=== PATIENT | female | born 1975 | race Caucasian/White ===

== ENCOUNTER → 2018-04-25 | Outpatient (CLI) | payer OTHER ==
[2018-04-25 07:55] LABS: ABSOLUTE BASOPHILS 0.1 thou/uL (0.0-0.2); ABSOLUTE EOSINOPHILS 0.3 thou/uL (0.0-0.7); ABSOLUTE LYMPHOCYTES 3.5 thou/uL (0.8-5.3); ABSOLUTE MONOCYTES 0.5 thou/uL (0.0-1.2); ABSOLUTE NEUTROPHILS 5.8 thou/uL (1.6-8.1); BASOPHILS 0.8 %; EOSINOPHILS 2.6 %; HEMOGLOBIN 13.1 gm/dL (12.0-15.0); LYMPHOCYTES 34.8 %; MCH 29.9 pg (26.0-34.0); MCHC 32.8 g/dL (28.0-37.0); MCV 91.1 fL (80.0-100.0); MONOCYTES 4.7 %; NUCLEATED RBCS 0 /100WBC; PLATELET COUNT* 375 thou/uL (150-400); POLYS 57.1 %; RBC 4.39 mil/uL (4.20-5.00); WBC 10.2 thou/uL (4.0-11.0)
[2018-04-25 08:12] LABS: ALBUMIN 3.2 g/dL (3.4-5.0); ALKALINE PHOSPHATASE 90 U/L (46-116); ANION GAP 7 mmol/L (7-16); BUN 11 mg/dL (7-18); CALCIUM 9.1 mg/dL (8.5-10.1); CHLORIDE 102 mmol/L (98-107); CHOLESTEROL 127 mg/dL (<200); CO2 29 mmol/L (21-32); CREATININE 0.8 mg/dL (0.6-1.3); GLUCOSE 137 mg/dL (70-99); HDL CHOLESTEROL 44 mg/dL (>40); LDL CHOLESTEROL 58 mg/dL (<100); POTASSIUM 4.5 mmol/L (3.5-5.1); SGOT 21 U/L (15-37); SGPT 42 U/L (30-65); SODIUM 138 mmol/L (136-145); TC:HDL 2.9 Ratio (Not establshd); TOTAL BILIRUBIN 0.2 mg/dL (<0.1-1.0); TOTAL PROTEIN 7.8 g/dL (6.4-8.2); TRIGLYCERIDE 129 mg/dL (<150); VLDL 26 mg/dL (<40)
[2018-04-25 08:14] LABS: SERUM ASSESSMENT Clear
== END ==
LOC: M.LAB 07:37
PROVIDERS: Family Medicine
DX: E11.9 Type 2 diabetes mellitus without complications (principal); E78.2 Mixed hyperlipidemia; F41.9 Anxiety disorder, unspecified; F51.02 Adjustment insomnia; Z79.4 Long term (current) use of insulin

== ENCOUNTER → 2018-08-14 | Outpatient (CLI) | payer OTHER ==
[2018-08-14 09:42] LABS: CALCIUM 9.2 mg/dL (8.5-10.1); CREATININE 0.7 mg/dL (0.6-1.3); POTASSIUM 4.3 mmol/L (3.5-5.1)
[2018-08-14 21:07] LABS: GLYCOHEMOGLOBIN (HGB A1C) 7.3 % (4.8-5.6)
== END ==
LOC: M.LAB 09:07
PROVIDERS: Registered Nurse
DX: I10 Essential (primary) hypertension (principal); E11.65 Type 2 diabetes mellitus with hyperglycemia; Z79.4 Long term (current) use of insulin

== ENCOUNTER → 2018-08-22 | Outpatient (CLI) | payer OTHER | LOC: M.LAB 16:01 | DX: E55.9 Vitamin D deficiency, unspecified (principal) ==

== ENCOUNTER → 2018-11-07 | Outpatient (CLI) | payer OTHER ==
[2018-11-10 15:08] LABS: ANA INTERPRETATION Negative (Negative)
== END ==
LOC: M.LAB 13:05
PROVIDERS: Registered Nurse
DX: M25.50 Pain in unspecified joint (principal); R21 Rash and other nonspecific skin eruption

== ENCOUNTER → 2018-12-11 | Outpatient (CLI) | payer OTHER ==
[2018-12-11 07:09] LABS: ABSOLUTE EOSINOPHILS 0.2 thou/uL (0.0-0.7); ABSOLUTE LYMPHOCYTES 3.3 thou/uL (0.8-5.3); ABSOLUTE MONOCYTES 0.5 thou/uL (0.0-1.2); ABSOLUTE NEUTROPHILS 5.8 thou/uL (1.6-8.1); BASOPHILS 0.2 %; EOSINOPHILS 2.5 %; HEMATOCRIT 38.4 % (37.0-47.0); HEMOGLOBIN 12.8 gm/dL (12.0-15.0); LYMPHOCYTES 33.1 %; MCH 29.8 pg (26.0-34.0); MCHC 33.3 g/dL (28.0-37.0); MCV 89.3 fL (80.0-100.0); MONOCYTES 5.5 %; NUCLEATED RBCS 0 /100WBC; PLATELET COUNT* 362 thou/uL (150-400); POLYS 58.7 %; RBC 4.29 mil/uL (4.20-5.00); RDW-CV 14.3 % (10.5-14.5); WBC 9.8 thou/uL (4.0-11.0)
[2018-12-11 07:18] LABS: ALKALINE PHOSPHATASE 87 U/L (46-116); ANION GAP 6 mmol/L (7-16); BUN 13 mg/dL (7-18); CALCIUM 8.4 mg/dL (8.5-10.1); CHLORIDE 103 mmol/L (98-107); CHOLESTEROL 138 mg/dL (<200); CO2 29 mmol/L (21-32); CREATININE 0.8 mg/dL (0.6-1.3); GLUCOSE 122 mg/dL (70-99); HDL CHOLESTEROL 48 mg/dL (>40); LDL CHOLESTEROL 64 mg/dL (<100); POTASSIUM 4.4 mmol/L (3.5-5.1); SGOT 16 U/L (15-37); SGPT 25 U/L (30-65); SODIUM 138 mmol/L (136-145); TC:HDL 2.9 Ratio (Not establshd); TOTAL BILIRUBIN 0.3 mg/dL (<0.1-1.0); TOTAL PROTEIN 7.6 g/dL (6.4-8.2); TRIGLYCERIDE 131 mg/dL (<150); VLDL 26 mg/dL (<40)
[2018-12-11 07:20] LABS: SERUM ASSESSMENT Clear
[2018-12-11 23:07] LABS: GLYCOHEMOGLOBIN (HGB A1C) 7.5 % (4.8-5.6)
== END ==
LOC: M.LAB 06:49
PROVIDERS: Registered Nurse
DX: E11.65 Type 2 diabetes mellitus with hyperglycemia (principal); I10 Essential (primary) hypertension; E78.5 Hyperlipidemia, unspecified; E55.9 Vitamin D deficiency, unspecified; Z79.4 Long term (current) use of insulin

== ENCOUNTER → 2019-07-06 | Outpatient (CLI) | payer OTHER ==
[2019-07-06 07:40] LABS: ABSOLUTE EOSINOPHILS 0.3 thou/uL (0.0-0.7); ABSOLUTE LYMPHOCYTES 4.3 thou/uL (0.8-5.3); ABSOLUTE MONOCYTES 0.6 thou/uL (0.0-1.2); ABSOLUTE NEUTROPHILS 5.6 thou/uL (1.6-8.1); BASOPHILS 0.4 %; EOSINOPHILS 2.4 %; HEMATOCRIT 39.2 % (37.0-47.0); HEMOGLOBIN 13.1 gm/dL (12.0-15.0); LYMPHOCYTES 39.6 %; MCH 30.4 pg (26.0-34.0); MCHC 33.5 g/dL (28.0-37.0); MCV 90.8 fL (80.0-100.0); MONOCYTES 5.7 %; MPV 7.6 fl. (7.2-11.1); NUCLEATED RBCS 0 /100WBC; PLATELET COUNT* 332 thou/uL (150-400); POLYS 51.9 %; RBC 4.32 mil/uL (4.20-5.00); RDW-CV 14.7 % (10.5-14.5); WBC 10.9 thou/uL (4.0-11.0)
[2019-07-06 07:52] LABS: ALBUMIN 3.2 g/dL (3.4-5.0); ALKALINE PHOSPHATASE 91 U/L (46-116); ANION GAP 12 mmol/L (7-16); BUN 10 mg/dL (7-18); CALCIUM 8.9 mg/dL (8.5-10.1); CHLORIDE 103 mmol/L (98-107); CHOLESTEROL 134 mg/dL (<200); CO2 25 mmol/L (21-32); CREATININE 0.7 mg/dL (0.6-1.3); GLUCOSE 158 mg/dL (70-99); HDL CHOLESTEROL 44 mg/dL (>40); LDL CHOLESTEROL 65 mg/dL (<100); SGOT 20 U/L (15-37); SGPT 31 U/L (30-65); SODIUM 140 mmol/L (136-145); TOTAL BILIRUBIN 0.2 mg/dL (<0.1-1.0); TOTAL PROTEIN 7.7 g/dL (6.4-8.2); TRIGLYCERIDE 127 mg/dL (<150); VLDL 25 mg/dL (<40)
[2019-07-06 07:55] LABS: SERUM ASSESSMENT Clear
== END ==
LOC: M.LAB 07:25
PROVIDERS: Registered Nurse
DX: E55.9 Vitamin D deficiency, unspecified (principal); E11.3313 Type 2 diabetes mellitus with moderate nonproliferative diabetic retinopathy with macular edema, bilateral; Z79.4 Long term (current) use of insulin; Z79.899 Other long term (current) drug therapy

== ENCOUNTER → 2019-10-29 | Outpatient (CLI) | payer OTHER | LOC: M.ULTRA 15:00 | DX: T83.32XA Displacement of intrauterine contraceptive device, initial encounter (principal); N88.8 Other specified noninflammatory disorders of cervix uteri; Y83.8 Other surgical procedures as the cause of abnormal reaction of the patient, or of later complication, without mention of misadventure at the time of the procedure; Y92.89 Other specified places as the place of occurrence of the external cause ==

== ENCOUNTER → 2020-01-21 | Outpatient (CLI) | payer OTHER ==
[2020-01-21 12:15] LABS: ABSOLUTE BASOPHILS 0.1 thou/uL (0.0-0.2); ABSOLUTE EOSINOPHILS 0.3 thou/uL (0.0-0.7); ABSOLUTE LYMPHOCYTES 4.4 thou/uL (0.8-5.3); ABSOLUTE MONOCYTES 0.5 thou/uL (0.0-1.2); ABSOLUTE NEUTROPHILS 6.3 thou/uL (1.6-8.1); EOSINOPHILS 2.2 %; HEMATOCRIT 39.3 % (37.0-47.0); HEMOGLOBIN 12.7 gm/dL (12.0-15.0); LYMPHOCYTES 37.9 %; MCH 29.2 pg (26.0-34.0); MCHC 32.3 g/dL (28.0-37.0); MCV 90.3 fL (80.0-100.0); MONOCYTES 4.7 %; MPV 7.7 fl. (7.2-11.1); NUCLEATED RBCS 0 /100WBC; PLATELET COUNT* 344 thou/uL (150-400); POLYS 54.2 %; RBC 4.35 mil/uL (4.20-5.00); RDW-CV 15.3 % (10.5-14.5); WBC 11.7 thou/uL (4.0-11.0)
[2020-01-21 12:25] LABS: ALBUMIN 3.2 g/dL (3.4-5.0); ALKALINE PHOSPHATASE 87 U/L (46-116); ANION GAP 6 mmol/L (7-16); BUN 9 mg/dL (7-18); CALCIUM 8.4 mg/dL (8.5-10.1); CHLORIDE 100 mmol/L (98-107); CHOLESTEROL 169 mg/dL (<200); CO2 32 mmol/L (21-32); CREATININE 0.8 mg/dL (0.6-1.3); GLUCOSE 154 mg/dL (70-99); HDL CHOLESTEROL 49 mg/dL (>40); LDL CHOLESTEROL 91 mg/dL (<100); POTASSIUM 4.3 mmol/L (3.5-5.1); SERUM ASSESSMENT Clear; SGOT 23 U/L (15-37); SGPT 37 U/L (30-65); SODIUM 138 mmol/L (136-145); TC:HDL 3.4 Ratio (Not establshd); TOTAL BILIRUBIN 0.2 mg/dL (<0.1-1.0); TOTAL PROTEIN 7.6 g/dL (6.4-8.2); TRIGLYCERIDE 147 mg/dL (<150); VLDL 29 mg/dL (<40)
[2020-01-22 02:07] LABS: GLYCOHEMOGLOBIN (HGB A1C) 11.3 % (4.8-5.6)
== END ==
LOC: M.LAB 11:37
PROVIDERS: Nurse Practitioner
DX: E78.2 Mixed hyperlipidemia (principal); E66.9 Obesity, unspecified; E11.3313 Type 2 diabetes mellitus with moderate nonproliferative diabetic retinopathy with macular edema, bilateral; Z79.4 Long term (current) use of insulin

== ENCOUNTER → 2020-03-11 | Outpatient (CLI) | payer OTHER ==
[2020-03-11 11:56] LABS: ABSOLUTE BASOPHILS 0.1 thou/uL (0.0-0.2); ABSOLUTE EOSINOPHILS 0.3 thou/uL (0.0-0.7); ABSOLUTE LYMPHOCYTES 3.5 thou/uL (0.8-5.3); ABSOLUTE MONOCYTES 0.5 thou/uL (0.0-1.2); ABSOLUTE NEUTROPHILS 5.1 thou/uL (1.6-8.1); HEMATOCRIT 37.6 % (37.0-47.0); HEMOGLOBIN 12.6 gm/dL (12.0-15.0); LYMPHOCYTES 36.9 %; MCH 30.4 pg (26.0-34.0); MCHC 33.5 g/dL (28.0-37.0); MCV 90.9 fL (80.0-100.0); NUCLEATED RBCS 0 /100WBC; PLATELET COUNT* 337 thou/uL (150-400); POLYS 54.1 %; RBC 4.14 mil/uL (4.20-5.00); RDW-CV 15.3 % (10.5-14.5); WBC 9.4 thou/uL (4.0-11.0)
[2020-03-11 12:14] LABS: ALBUMIN 3.1 g/dL (3.4-5.0); CREATININE 0.8 mg/dL (0.6-1.3); POTASSIUM 4.4 mmol/L (3.5-5.1); TOTAL BILIRUBIN 0.2 mg/dL (<0.1-1.0); TOTAL PROTEIN 7.6 g/dL (6.4-8.2)
== END ==
LOC: M.LAB 11:25
PROVIDERS: Nurse Practitioner
DX: R06.09 Other forms of dyspnea (principal); M79.89 Other specified soft tissue disorders; E11.9 Type 2 diabetes mellitus without complications; I10 Essential (primary) hypertension; E66.01 Morbid (severe) obesity due to excess calories; E78.2 Mixed hyperlipidemia; Z79.4 Long term (current) use of insulin

== ENCOUNTER → 2020-03-17 | Outpatient (CLI) | payer OTHER ==
[2020-03-17 15:55] LABS: ALBUMIN 3.3 g/dL (3.4-5.0); CALCIUM 8.9 mg/dL (8.5-10.1); CREATININE 0.9 mg/dL (0.6-1.3); POTASSIUM 4.2 mmol/L (3.5-5.1); TOTAL BILIRUBIN 0.1 mg/dL (<0.1-1.0)
== END ==
LOC: M.ULTRA 15:00
PROVIDERS: ATTEND Nurse Practitioner
DX: M79.89 Other specified soft tissue disorders (principal)

== ENCOUNTER 2020-05-23 10:07 | Emergency (ER) | payer OTHER ==
[~2020-05-23] VITALS: Ht 162.6 cm; Wt 158.8 kg
[2020-05-23] MEDS ORDERED: TRESIBA100 UNIT/1 (10:26)
[2020-05-23] MEDS ORDERED: HUMALOG100 UNIT/1 SUBQ (10:27)
[2020-05-23] MEDS ORDERED: REMERON15 M1 PO (10:27)
[2020-05-23 11:00] LABS: ABSOLUTE BASOPHILS 0.1 thou/uL (0.0-0.2); ABSOLUTE EOSINOPHILS 0.3 thou/uL (0.0-0.7); ABSOLUTE LYMPHOCYTES 3.8 thou/uL (0.8-5.3); ABSOLUTE MONOCYTES 0.4 thou/uL (0.0-1.2); ABSOLUTE NEUTROPHILS 5.5 thou/uL (1.6-8.1); EOSINOPHILS 2.7 %; HEMATOCRIT 37.3 % (37.0-47.0); HEMOGLOBIN 12.4 gm/dL (12.0-15.0); LYMPHOCYTES 37.7 %; MCHC 33.2 g/dL (28.0-37.0); MCV 90.4 fL (80.0-100.0); MONOCYTES 4.2 %; MPV 8.5 fl. (7.2-11.1); NUCLEATED RBCS 0 /100WBC; PLATELET COUNT* 309 thou/uL (150-400); POLYS 54.4 %; RBC 4.13 mil/uL (4.20-5.00); RDW-CV 14.3 % (10.5-14.5); WBC 10.1 thou/uL (4.0-11.0)
[2020-05-23 11:16] LABS: APTT 25.7 Seconds (25.0-31.3); INR 0.9; PROTIME 9.6 Seconds (9.20-11.50)
[2020-05-23 11:22] LABS: CALCIUM 8.5 mg/dL (8.5-10.1); CREATININE 0.8 mg/dL (0.6-1.3); POTASSIUM 4.1 mmol/L (3.5-5.1)
[2020-05-23 11:27] LABS: TOTAL BILIRUBIN 0.2 mg/dL (<0.1-1.0)
[2020-05-23] MEDS ORDERED: MEDROLDOSEPACK PO ×3 (11:57→12:02)
[2020-05-23] MEDS ORDERED: ASA81BEC PO ×3 (11:58→12:02)
[2020-05-23] MEDS ORDERED: NORCO 5-325 TA1 EAC2 PO (12:01)
[2020-05-23 12:20] VITALS: BP 131/72
--- NOTE | 2020-05-24 17:33 | EKG ---
[place] [address] ELECTROCARDIOGRAM REPORT Name: ENIOANGELIC Aicha Room: [facility]#: [id number] Admission: 05/23/20 Attend Phys: Discharge: 05/23/20 Date of : 75 Date of Service: 05/23/20 1027 Report #: [id number] THIS REPORT FOR: //name// [facility] ED Test Date: 2020-05-23 Test Time: 10:27:56 Pat Name: ANGELIC STEEN Department: Room: Gender: F [employer] Engineer: CCD : 1975 Requested By: Walter Black Order Number: [id number] MD: Goran Coffman Measurements Intervals [place] Rate: 102 P: 53 [place]: 166 QRS: 20 QRSD: 92 T: 43 QT: 377 QTc: 492 Interpretive Statements Sinus tachycardia Low voltage, precordial leads ST elev, probable normal early repol pattern Borderline prolonged QT interval Baseline wander in lead(s) I,aVL,V6 No previous ECG available for comparison Electronically Signed On 05-24-2020 17:32:48 CDT by Goran Coffman [email or web address] <ELECTRONICALLY SIGNED> By: Goran Coffman MD, [facility] 05/24/20 1732 1027 1027 Goran Coffman MD, [facility] /EPI
== END 2020-05-23 12:54 | disposition home or self-care (01) ==
LOC: M.ERS 10:07
PROVIDERS: Physician Assistant
DX: R09.1 Pleurisy (principal); E11.9 Type 2 diabetes mellitus without complications; Z98.890 Other specified postprocedural states; Z88.6 Allergy status to analgesic agent; Z79.4 Long term (current) use of insulin

== ENCOUNTER 2020-05-25 16:20 | Emergency (ER) | payer OTHER ==
[~2020-05-25] VITALS: Ht 162.6 cm; Wt 155.1 kg
[~2020-05-25 16:20] MED LIST: ASA81BEC PO; HUMALOG100 UNIT/1 SUBQ; MEDROLDOSEPACK PO; NORCO 5-325 TA1 EAC2 PO; REMERON15 M1 PO; TRESIBA100 UNIT/1
[2020-05-25 16:56] LABS: ABSOLUTE LYMPHOCYTES 3.8 thou/uL (0.8-5.3); ABSOLUTE MONOCYTES 0.7 thou/uL (0.0-1.2); ABSOLUTE NEUTROPHILS 10.4 thou/uL (1.6-8.1); BASOPHILS 0.2 %; EOSINOPHILS 0.2 %; HEMATOCRIT 40.4 % (37.0-47.0); HEMOGLOBIN 13.4 gm/dL (12.0-15.0); LYMPHOCYTES 25.7 %; MCHC 33.2 g/dL (28.0-37.0); MCV 90.6 fL (80.0-100.0); MONOCYTES 4.5 %; MPV 8.6 fl. (7.2-11.1); NUCLEATED RBCS 0 /100WBC; POLYS 69.4 %; RBC 4.46 mil/uL (4.20-5.00); RDW-CV 14.7 % (10.5-14.5); WBC 14.9 thou/uL (4.0-11.0)
[2020-05-25 16:59] LABS: PLATELET COUNT* 390 thou/uL (150-400)
[2020-05-25 17:05] LABS: CALCIUM 9.2 mg/dL (8.5-10.1); POTASSIUM 3.9 mmol/L (3.5-5.1)
[2020-05-25 17:16] LABS: ALBUMIN 3.6 g/dL (3.4-5.0); TOTAL BILIRUBIN 0.1 mg/dL (<0.1-1.0); TOTAL PROTEIN 8.2 g/dL (6.4-8.2)
[2020-05-25] MEDS ORDERED: NORCO 5-325 TA1 EAC2 PO (18:51)
[2020-05-25] MEDS ORDERED: FLEXERIL PO (18:51)
[2020-05-25] MEDS ORDERED: PERCOCET 5-3251 EACH PO (18:55)
[2020-05-25 19:08] VITALS: BP 152/88
--- NOTE | 2020-05-26 12:15 | EKG ---
[place] [address] ELECTROCARDIOGRAM REPORT Name: ANGELIC STEEN Room: [facility]#: [id number] Admission: 05/25/20 Attend Phys: Discharge: 05/25/20 Date of : 75 Date of Service: 05/25/20 1650 Report #: [id number] THIS REPORT FOR: //name// [facility] ED Test Date: 2020-05-25 Test Time: 16:50:08 Pat Name: ANGELIC STEEN Department: Room: Gender: F Mid Teacher: : 1975 Requested By: Walter Black Order Number: [id number] MD: Jonathan Nixon Measurements Intervals [place] Rate: 86 P: 50 PA: 183 QRS: 13 QRSD: 102 T: 31 QT: 387 QTc: 463 Interpretive Statements Sinus rhythm Probable left atrial enlargement Compared to ECG 05/23/2020 10:27:56 Sinus tachycardia no longer present ST (T wave) deviation no longer present Electronically Signed On 05-26-2020 12:15:13 CDT by Jonathan Nixon [email or web address] <ELECTRONICALLY SIGNED> By: Jonathan Nixon MD, FACC 05/26/20 1215 1650 1650 Jonathan Nixon MD, [facility] /EPI
== END 2020-05-25 19:10 | disposition home or self-care (01) ==
LOC: M.ERS 16:20
PROVIDERS: Physician Assistant
DX: E11.65 Type 2 diabetes mellitus with hyperglycemia (principal); R07.81 Pleurodynia; R20.0 Anesthesia of skin; E11.9 Type 2 diabetes mellitus without complications; F41.9 Anxiety disorder, unspecified; Z20.828 Contact with and (suspected) exposure to other viral communicable diseases; Z79.4 Long term (current) use of insulin; Z98.890 Other specified postprocedural states; Z90.49 Acquired absence of other specified parts of digestive tract; Z88.6 Allergy status to analgesic agent

== ENCOUNTER → 2020-05-27 | Outpatient (CLI) | payer OTHER ==
[~2020-05-27] MED LIST changes: +FLEXERIL PO; +PERCOCET 5-3251 EACH PO
[2020-05-27 10:47] LABS: ABSOLUTE BASOPHILS 0.1 thou/uL (0.0-0.2); ABSOLUTE EOSINOPHILS 0.1 thou/uL (0.0-0.7); ABSOLUTE LYMPHOCYTES 2.9 thou/uL (0.8-5.3); ABSOLUTE MONOCYTES 0.7 thou/uL (0.0-1.2); BASOPHILS 0.6 %; EOSINOPHILS 0.6 %; HEMATOCRIT 38.8 % (37.0-47.0); HEMOGLOBIN 12.8 gm/dL (12.0-15.0); LYMPHOCYTES 24.7 %; MCH 30.2 pg (26.0-34.0); MCHC 33.1 g/dL (28.0-37.0); MCV 91.4 fL (80.0-100.0); MONOCYTES 5.7 %; MPV 8.5 fl. (7.2-11.1); NUCLEATED RBCS 0 /100WBC; PLATELET COUNT* 329 thou/uL (150-400); POLYS 68.4 %; RBC 4.25 mil/uL (4.20-5.00); RDW-CV 14.9 % (10.5-14.5); WBC 11.7 thou/uL (4.0-11.0)
[2020-05-27 10:56] LABS: ALBUMIN 3.2 g/dL (3.4-5.0); CALCIUM 8.7 mg/dL (8.5-10.1); CREATININE 0.9 mg/dL (0.6-1.3); POTASSIUM 4.2 mmol/L (3.5-5.1); TOTAL BILIRUBIN 0.1 mg/dL (<0.1-1.0); TOTAL PROTEIN 7.4 g/dL (6.4-8.2)
[2020-05-27 11:57] LABS: ESR (SEDRATE) 35 mm/hr (0-20)
== END ==
LOC: M.LAB 10:04
PROVIDERS: ATTEND Nurse Practitioner
DX: R06.02 Shortness of breath (principal); Z20.828 Contact with and (suspected) exposure to other viral communicable diseases

== ENCOUNTER → 2020-05-31 | Outpatient (CLI) | payer OTHER | LOC: M.CT 16:30 | PROVIDERS: ATTEND Family Medicine | DX: M79.89 Other specified soft tissue disorders (principal); R06.09 Other forms of dyspnea; D72.829 Elevated white blood cell count, unspecified; E66.01 Morbid (severe) obesity due to excess calories; R11.0 Nausea; Z68.43 Body mass index [BMI] 50.0-59.9, adult ==

== ENCOUNTER → 2020-06-01 | Outpatient (CLI) | payer OTHER | LOC: M.RAD 09:13 | PROVIDERS: ATTEND Family Medicine | DX: R10.13 Epigastric pain (principal) ==

== ENCOUNTER → 2020-06-03 | Outpatient (CLI) | payer OTHER ==
[2020-06-03 15:29] LABS: ALBUMIN 3.2 g/dL (3.4-5.0); CALCIUM 8.8 mg/dL (8.5-10.1); CREATININE 0.9 mg/dL (0.6-1.3); TOTAL BILIRUBIN 0.2 mg/dL (<0.1-1.0); TOTAL PROTEIN 7.6 g/dL (6.4-8.2)
== END ==
LOC: M.LAB 15:05
PROVIDERS: ATTEND Family Medicine
DX: E87.1 Hypo-osmolality and hyponatremia (principal)

== ENCOUNTER → 2020-06-09 | Outpatient (CLI) | payer OTHER ==
[~2020-06-09] MED LIST changes: +ADVIL200 M1 PO; +ALPRAZOLAM 0.50.5 M1 PO; +COZAAR 50 MG TA50 M1 PO; +GLUCOPHAGE XR750 MG PO; +LIPITOR 20 MG T20 M1 PO; +MELATONIN5 MG SUBLING; +NEXIUM40 MG PO; +SERTRALINE HCL50 MG PO; -TRESIBA100 UNIT/1; +TRESIBA100 UNIT/1 SUBQ; +ZANAFLEX4 MG PO
== END ==
LOC: M.LAB 07:22
PROVIDERS: ATTEND Internal Medicine Gastroenterology
DX: Z01.812 Encounter for preprocedural laboratory examination (principal); Z20.828 Contact with and (suspected) exposure to other viral communicable diseases; R10.13 Epigastric pain; R11.0 Nausea

== ENCOUNTER → 2020-06-14 | Day surgery (SDC) | payer OTHER ==
[2020-06-14 08:06] LABS: HEMOGLOBIN 13.9 gm/dL (12.0-15.0)
--- NOTE | 2020-06-16 14:07 | PATH ---
[facility] [address] [place] [address] PATHOLOGY RPT PROCEDURE Name: ANGELIC STEEN Room: [facility].#: [id number] Admission: 06/14/20 Date of : 75 Discharge: Report #: [id number] Path Case #: [id number] [facility] Accession Number: [id number] . 01 Material submitted: . stomach - ANTRAL BIOPSY FOR GASTRITIS . 01 Clinical history: . EPIGASTRIC PAIN, NAUSEA . 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 (REYMUNDO:pit 06/16/2020) . Special stain: H. pylori immuno QTP 06/16/2020 1058 Local . 02 Electronically signed: . Henrry Bradley MD, Pathologist NPI- [id number] . 01 Gross description: . The specimen is received in formalin, labeled "Contreras, Angelic, antral biopsy" and consists of 4 fragments of agustin tissue measuring between 0.2 x 0.2 cm and 0.5 x 0.2 cm which are entirely submitted in A1. (SDY; 06/15/2020) SYU/SYU 06/15/2020 1136 Local . 02 Pathologist provided ICD-10: K29.50 . 02 CPT . 202609, V20721 Specimen Comment: A courtesy copy of this report has been sent to [phone] Specimen Comment: [id number] Specimen Comment: Report sent to / DR LANDAVERDE Performed at: [address] [facility] [address], [place], [place] [id number] MD Shaka Mckeon MD Phone: [phone] Performed at: 02 [facility] [place] [address] [place], [place] [id number] MD Henrry Bradley MD Phone: [phone]
== END | disposition home or self-care (01) ==
LOC: M.SUR 05:40
PROVIDERS: ATTEND Internal Medicine Gastroenterology
DX: R10.13 Epigastric pain (principal); R11.0 Nausea; K29.50 Unspecified chronic gastritis without bleeding; K31.9 Disease of stomach and duodenum, unspecified; K44.9 Diaphragmatic hernia without obstruction or gangrene; K21.9 Gastro-esophageal reflux disease without esophagitis; I10 Essential (primary) hypertension; E11.9 Type 2 diabetes mellitus without complications; F32.9 Major depressive disorder, single episode, unspecified; E78.5 Hyperlipidemia, unspecified; Z98.890 Other specified postprocedural states; Z79.899 Other long term (current) drug therapy; Z90.49 Acquired absence of other specified parts of digestive tract

== ENCOUNTER → 2021-07-19 | Outpatient (CLI) | payer OTHER ==
[2021-07-19 07:41] LABS: HEMOGLOBIN 13.3 gm/dL (12.0-15.0); MPV 8.1 fl. (7.2-11.1); NUCLEATED RBCS 0 /100WBC; WBC 8.8 thou/uL (4.0-11.0)
[2021-07-19 07:42] LABS: ABSOLUTE BASOPHILS 0.1 thou/uL (0.0-0.2); ABSOLUTE EOSINOPHILS 0.2 thou/uL (0.0-0.7); ABSOLUTE LYMPHOCYTES 3.2 thou/uL (0.8-5.3); ABSOLUTE MONOCYTES 0.5 thou/uL (0.0-1.2); ABSOLUTE NEUTROPHILS 4.8 thou/uL (1.6-8.1); BASOPHILS 0.8 %; EOSINOPHILS 2.4 %; HEMATOCRIT 40.5 % (37.0-47.0); MCHC 32.9 g/dL (28.0-37.0); MCV 88.1 fL (80.0-100.0); MONOCYTES 5.7 %; PLATELET COUNT* 358 thou/uL (150-400); POLYS 55.1 %; RDW-CV 14.7 % (10.5-14.5)
[2021-07-19 07:55] LABS: ALBUMIN 3.3 g/dL (3.4-5.0); ALKALINE PHOSPHATASE 129 U/L (46-116); ANION GAP 10 mmol/L (7-16); BUN 11 mg/dL (7-18); CALCIUM 8.9 mg/dL (8.5-10.1); CHLORIDE 97 mmol/L (98-107); CHOLESTEROL 149 mg/dL (<200); CO2 27 mmol/L (21-32); CREATININE 0.9 mg/dL (0.6-1.3); GLUCOSE 365 mg/dL (70-99); HDL CHOLESTEROL 42 mg/dL (>40); LDL CHOLESTEROL 70 mg/dL (<100); POTASSIUM 4.3 mmol/L (3.5-5.1); SGOT 21 U/L (15-37); SGPT 31 U/L (30-65); SODIUM 134 mmol/L (136-145); TC:HDL 3.5 Ratio (Not establshd); TOTAL BILIRUBIN 0.2 mg/dL (<0.1-1.0); TOTAL PROTEIN 7.6 g/dL (6.4-8.2); TRIGLYCERIDE 187 mg/dL (<150); VLDL 37 mg/dL (<40)
[2021-07-19 07:56] LABS: SERUM ASSESSMENT Clear
[2021-07-19 08:47] LABS: ESR (SEDRATE) 50 mm/hr (0-20)
[2021-07-20 03:06] LABS: GLYCOHEMOGLOBIN (HGB A1C) 13.7 % (4.8-5.6)
[2021-07-20 18:06] LABS: ANA INTERPRETATION Negative (())
== END ==
LOC: M.LAB 07:14 → EDSTATUS 07:17
PROVIDERS: ATTEND Specialist
DX: D69.2 Other nonthrombocytopenic purpura (principal); E11.3313 Type 2 diabetes mellitus with moderate nonproliferative diabetic retinopathy with macular edema, bilateral; E66.01 Morbid (severe) obesity due to excess calories; E78.2 Mixed hyperlipidemia; I10 Essential (primary) hypertension; L30.9 Dermatitis, unspecified; F43.10 Post-traumatic stress disorder, unspecified; Z68.43 Body mass index [BMI] 50.0-59.9, adult; Z79.4 Long term (current) use of insulin